=== PATIENT | female | born 1995 | race Caucasian/White ===

== ENCOUNTER 2022-11-30 16:01 | Outpatient (CLI) | payer OTHER, SELFPAY ==
--- NOTE | 2022-11-30 16:00 | CRLHL7_ITS ---
For Patients: As a result of the Cures Act, medical imaging exams and procedure reports are released immediately into your electronic medical record. You may view this report before your referring provider. If you have questions, please contact your health care provider. INDICATION: First trimester scan, establish dates. COMPARISON: None. TECHNIQUE: Real-time cardona-scale imaging of the pelvis was performed. FINDINGS: Sonographic imaging demonstrates a single living intrauterine gestation. The embryo demonstrates a regular cardiac rate measuring 166 beats per minute. The embryo`s crown-rump length measurement of 2.2 cm corresponds to a gestational age of 8 weeks 6 days with a sonographic due date of 07/06/2023. There is a normal-appearing yolk sac. There are no gross abnormalities noted within the embryo at this early state of development. The gestational sac has a normal appearance. There is no evidence of a perigestational hemorrhage. The amount of fluid within the sac appears appropriate for gestational age. The cervix is closed. The myometrium appears normal. The ovaries are of normal size. Corpus luteal cyst right ovary. Trace pelvic free fluid. IMPRESSION: Normal first trimester OB ultrasound exam. Gestational age calculated at 8 weeks 6 days with a sonographic due date of 07/06/2023. Dictated by Anand Em MD @ 12/03/2022 5:49:52 AM (Electronically Signed)
== END 2022-11-30 16:02 | disposition home or self-care (01) ==
LOC: US 16:02
PROVIDERS: PCP Family Medicine; Visit Provider Registered Nurse
DX: Z34.91 Encounter for supervision of normal pregnancy, unspecified, first trimester (principal); Z3A.08 8 weeks gestation of pregnancy
CPT/HCPCS: 76817; 86592; 86703; 86704; 86706; 86762; 86787; 86803; 86850; 86900; 86901; 87086; 87340; 87491; 87591

== ENCOUNTER 2023-04-18 14:30 | Outpatient (CLI) | payer BC, SELFPAY | END 2023-04-18 14:31 | disposition home or self-care (01) | LOC: NFLDREF 04-22 07:53 | PROVIDERS: PCP Family Medicine; Referring Provider Family Medicine; Visit Provider Obstetrics & Gynecology | DX: Z34.93 Encounter for supervision of normal pregnancy, unspecified, third trimester (principal) | CPT/HCPCS: 86592 ==

== ENCOUNTER 2023-06-13 09:30 | Outpatient (CLI) | payer BC, SELFPAY ==
--- OUTSIDE RECORDS SUMMARY | 2023-06-15 06:46 | XMS_ITS | Clinical Summary ---
Author Name Unknown Organization [facility] Address [place], [place] [address] Care Team Providers Care Computer Technology Instructor Name Role Phone Pcp, No Primary Care Provider Unavailabl e Allergies No known active allergies Medications Medication Sig Dispensed Refills Start Date End Date Status FLUoxetine (PROZAC) 20 mg capsule Take 20 mg by mouth once daily. 04/20/2016 Active buPROPion (WELLBUTRIN XL) 300 mg Extended-Release tablet Take 300 mg by mouth once daily. 04/20/2016 Active norgestimate-ethinyl estradiol, 0.25-35 mg-mcg, (SPRINTEC) 0.25-35 mg-mcg tablet 02/19/2017 Act ángel Active Problems No known active problems Social History Tobacco Use Types Packs/Day Years Used Date Smoking Tobacco: Never Smokeless Tobacco: Never Tobacco Cessation:Counseling Given: Yes Alcohol Use Standard Drinks/Week Comments Not Currently 0 (1 standard drink = 0.6 oz pur e alcohol) Social Connections Answer Date Recorded Frequency of Communication with Friends and Fami ly Not on file 02/07/2021 Financial Resource Strain Answer Date R ecorded Difficulty of Paying Living Expenses Not on file 02/07/2021 Difficulty of Paying Living Expenses Not on file 02/07/2021 Sex and Gender Information Value Date Recorded Sex Assigned at Not on file Gender Identity Not on file Sexual Orientation Not on file Obstetrics History Last Filed Vital Signs Vital Sign Reading Time Taken Comments Blood Pressure 115/73 05/20/2021 10:20 AM CDT Pulse 66 05/20/2021 10:20 AM CDT Temperature 36.5 ??C (97.7 ??F) 12/22/2018 7:43 AM CS T Respiratory Rate - - Oxygen Saturation 97% 05/20/2021 10: 20 AM CDT Inhaled Oxygen Concentration - - Weight 105.1 kg (231 lb 12.8 oz) 2021 10:20 AM CDT Height 174 cm (5' 8.5) 12/03/2019 4:31 PM CDT Body Mass Index 34.73 12/03/2019 4:31 PM CDT Plan of Treatment Health Maintenance Due Date Last Done Comments Tdap 2005 Depression screening for age 12+ 2006 HIV for age 15-65 2009 Hepatitis C screening for ag e 18-79 2012 Tetanus booster 2014 BMI (ht and wt on same day) for age 18+ 12/02/2020 12/03/2019 COVID-19 vaccine series ( season) 2022 12/25/2020, 04/16/2020, 03/19/2020 Influenza for age 9-49 10/09/2023 Pap test for age 21-65 11/30/2025 , 11/30/2022 Pneumococcal series for age 6-64 Aged Out No longer eligible b ased on patient's age to complete this topic Procedures Procedure Name Priority Date/Time Associated Diagnosis Comments HPV THIN PREP Routine 11/30/2022 12:00 PM CDT from Last 3 Months or Most Recently Relevant to Health Maintenance Results * HPV HIGH RISK (11/30/2022 12:00 PM CDT) TYPE 16 Negative Negative 12/03/2022 2:38 PM CDT [facility] TYPE 18 Negative Negative 12/03/2022 2:38 PM CDT [facility] OTHER HIGH RISK TYPES Negative Negative 12/03/2022 2:38 PM CDT [facility] Other (Cervical) 11/30/2022 12:00 PM CDT 12/02/2022 10:38 AM CDT [facility] - 12/03/2022 2:38 PM CDT HPV types 16, 18, 31, 33, 35, 39, 45, 51, 52, 56, 58, 59, 66 and 68 DNA were undetectable or below the pre-set threshold. Methodology: Naldo Regla 4800 HPV Test Carissa Zambrano NP MICROBIOLOGY [facility]AL LAB[facility]ATORY [address] [place] [address], from Last 3 Months or Most Recently Relevant to Health Maintenance Care Teams Computer Technology Instructor Relationship Specialty Start Date End Date Pcp, No . PCP - General 12/22/18
== END 2023-06-13 09:31 | disposition home or self-care (01) ==
LOC: NFLDREF 06-15 06:45
PROVIDERS: PCP Family Medicine; Referring Provider Family Medicine; Visit Provider Obstetrics & Gynecology
DX: Z34.83 Encounter for supervision of other normal pregnancy, third trimester (principal)
CPT/HCPCS: 87081; 87653

== ENCOUNTER 2023-06-24 19:45 | Inpatient (IN) | payer BC, SELFPAY ==
--- OUTSIDE RECORDS SUMMARY | 2023-06-24 18:27 | XMS_ITS | Clinical Summary ---
Author Name Unknown Organization [facility] Address [place], [place] [address] Care Team Providers Care Video Control Engineer Name Role Phone Pcp, No Primary Care [...] 16 Negative Negative 12/03/2022 2:38 PM CDT [facility] TYPE 18 Negative Negative 12/03/2022 2:38 PM CDT [facility] OTHER HIGH RISK TYPES Negative Negative 12/03/2022 2:38 PM CDT [facility] Other (Cervical) 11/30/2022 12:00 PM CDT 12/02/2022 10:38 AM CDT [facility]AL [facility] - 12/03/2022 2:38 PM CDT HPV types 16, 18, 31, 33, 35, 39, 45, 51, 52, 56, 58, 59, 66 and 68 DNA were undetectable or below the pre-set threshold. Methodology: Naldo Regla 4800 HPV Test Carissa Zambrano NP MICROBIOLOGY [facility]-CENTRAL LABORATORY [address] [place] [address], from Last 3 Months or Most Recently Relevant to Health Maintenance Care Teams Video Control Engineer Relationship Specialty Start Date End Date Pcp, No . PCP - General 12/22/18
[2023-06-24 18:43] VITALS: BP 138/81; PULSE 78; RESP 16; TEMP 37.2
[2023-06-24 18:59] LABS: Amnisure Rom* POSITIVE
[2023-06-24 19:03] VITALS: BP 137/80; PULSE 88
[2023-06-24 19:50] VITALS: BMI 32.1
[2023-06-24 20:13] LABS: Basophils Absolute Auto 0.01 K/uL (0.00-0.30); Basophils Percent Auto 0.1 % (0.0-3.0); Eosinophils Absolute Auto 0.06 K/uL (0.00-0.50); Eosinophils Percent Auto 0.6 % (0.0-7.0); Hematocrit 37.5 % (33.0-51.0); Hemoglobin* 12.6 gm/dL (12.0-16.0); Immature Granulocytes Abs Auto 0.02 K/uL (0.00-0.30); Immature Granulocytes Pct Auto 0.2 %; Lymphocytes Percent Auto 18.3 % (20-44); Mean Corpuscular HGB Conc 34 gm/dL (32-36); Mean Corpuscular Hemoglobin 28 pg (26-34); Mean Corpuscular Volume 83 fL (80-100); Monocytes Percent Auto 8.2 % (0.0-11.0); Neutrophils Percent Auto 72.6 % (42.0-72.0); Platelet Count* 265 K/uL (140-440); RDW Coefficient of Variation % 12.9 % (11.5-15.5); Red Blood Count 4.53 m/uL (4.00-5.20); White Blood Count* 9.49 K/uL (4.50-11.00)
[2023-06-24 20:14] LABS: Slide Review Reflex No
--- NOTE | 2023-06-24 20:29 | P.LDBA_ITS ---
Subjective History of Present Illness Narrative: Patient is being admitted to Labor and Delivery for premature rupture membranes at term. She is a 27 year old at 37 weeks, 5 days gestation. She had her first gush of fluid at 1130 today. This then recurred a few times during the day. AmniSure was positive upon admit. Her full history and physical was dictated by Dr. Plasencia on 06/22/2023. Please see this for details. Specific Issues/Plans G 2 P 0010 1. Depression and anxiety. Currently well-managed on Wellbutrin XL 300mg daily and Fluoxetine 80mg daily. 2. Nausea and vomiting of and motion sickness. Will send refill of zofran. Also recommended B6 and Unisom. 3. Family of congenital heart disease (maternal grandfather - coarctaion of aorta) * Level II ultrasound at [facility] on 02/09/2023 at 18w3d: EFW at the 79th percentile. AC at the 70th percentile. No anomalies commonly detected by ultrasound or soft markers of aneuploidy were identified in the detailed anatomy survey. Cervical length: 44.9 mm * Cell free DNA for genetic screening drawn during the consult: 02/09/23 result is negative * Further ultrasound as clinically indicated 4. History of reduction mammoplasty. May affect breast feeding. Rubella non immune. recommend vaccine. Varicella non immune. Recommend vaccine. Flu: 11/19/22 Covid: 11/19/22 Tdap: 05/02/23 32 wk mental health: done, 0/0 34 wk Hgb: 05/30/23 OB - Problem Based A/P Additional Plan (1) PROM (premature rupture of membranes): Status: Acute Plan: woman at 37 weeks, 5 days gestation with PROM at term. Not tiffanie regularly approximately for 9 hours after rupture of membranes. Unfavorable cervix. Reassuring status with category 1 tracing. GBS negative. Plan Oral Cytotec for cervical ripening. Pitocin thereafter as needed. Delivery/Labor/Induction Plan Plan: induction Induction method: per misoprostol protocol OB Result Labs GBS Status: negative OB Exam Physical Exam Vital signs: Temp Pulse Resp BP 98.9 F 88 16 137/80 06/24/23 18:43 06/24/23 19:03 06/24/23 18:43 06/24/23 19:03 Narrative: Physical exam: General: No acute distress Psych: Alert and oriented x3, full affect HEENT: Normocephalic, atraumatic Neck: No cervical adenopathy, no thyromegaly Heart: Regular rate and rhythm, no murmur rub or gallop Lungs: Clear to auscultation bilaterally Abdomen: Soft, nontender, gravid Lower extremities: No edema or erythema Cervical exam per RN: FT / long / high / posterior NST: Baseline 130 / accelerations present / no decelerations / moderate variability. Reactive, reassuring NST.
[2023-06-24] MEDS: miSOPROStoL 25 MCG/0.25 TABLET PO ×2 (21:06→23:12)
[2023-06-24 22:01] VITALS: BP 134/82; PULSE 77; TEMP 36.5
[2023-06-24] MEDS: hydrOXYzine pamoate 25 MG CAPSULE 100 MG PO (23:12)
[2023-06-24] MEDS: MORPHINE 10 MG/ML inj IM (23:12)
[2023-06-24 23:18] VITALS: BP 122/79; PULSE 62; RESP 16; TEMP 36
[2023-06-25] VITALS (94 sets, daily range): BP systolic 97–165; BP diastolic 53–99; PULSE 59–119; RESP 16–20; TEMP 36.4–37.1; O2SAT 84–100
[2023-06-25] MEDS: miSOPROStoL 25 MCG/0.25 TABLET PO (01:23)
[2023-06-25] MEDS: LIDOCAINE 2% (PF) 5 ML VIAL EPIDURAL (04:28)
[2023-06-25] MEDS: ROPIVACAINE 0.2% 100 ml 100 ML 12 MG EPIDURAL (04:28)
[2023-06-25] MEDS: LACTATED RINGERS 1000 ML 1,000 ML 100 ML IV (04:28)
--- NOTE | 2023-06-25 04:32 | PM.ANBPRC ---
[facility] Medical History Motion sickness ?T75.3XXA - Motion sickness, initial encounter (ICD-10) Insomnia ?G47.00 - Insomnia, unspecified (ICD-10) Depression ?F32.A - Depression, unspecified (ICD-10) Anxiety ?F41.9 - Anxiety disorder, unspecified (ICD-10) Surgical History H/O bilateral breast reduction surgery ?Z98.890 - Other specified postprocedural states (ICD-10) Status post myringotomy with tube placement of both ears (01/2001) ?Z96.22 - Myringotomy tube(s) status (ICD-10) Family History Paternal Grandfather Coarctation of aorta Social History Narrative: [employer], [employer] faculty member (Kindergarten), nonsmoker What is your current living situation?: I presently have a place to live Problems where you live: no known problems In the past 12 months, utilities in danger of being shut off: no In past 12 months, lack of transportation kept you from medical appts, meetings, work, or getting things needed for daily living: no In the past 12 mos, have been you worried that your food would run out before you had money to buy more?: never true In the past 12 mos, the food you bought just didn't last and you didn't have money to buy more?: never true Smoking Status: Never smoker How often does anyone, including family, friends and others, physically hurt you: never How often does anyone, including family, friends and others, insult or talk down to you: never How often does anyone, including family, friends and others, threaten you with harm: never How often does anyone, including family, friends and others, scream or curse at you: never Little interest or pleasure in doing things: not at all Feeling down, depressed, or hopeless: not at all Meds Home Medications and Allergies Home Medications Medication Instructions Recorded Confirmed Type docosahexaenoic acid 200 mg 200 mg PO DAILY 11/30/22 06/24/23 History capsule ( DHA) Allergies Allergy/AdvReac Type Severity Reaction Status Date / Time No Known Drug Allergies Allergy Verified 06/24/23 18:41 Results Labs Labs: Laboratory Results - last 24 hr 06/24/23 06/24/23 18:50 20:08 WBC 9.49 RBC 4.53 Hgb 12.6 Hct 37.5 MCV 83 MCH 28 MCHC 34 RDW Coeff of Akanksha 12.9 Plt Count 265 Neut % (Auto) 72.6 H Lymph % (Auto) 18.3 L [place] % (Auto) 8.2 Eos % (Auto) 0.6 Baso % (Auto) 0.1 Neut # (Auto) 6.90 Lymph # (Auto) 1.70 [place] # (Auto) 0.80 Eos # (Auto) 0.06 Baso # (Auto) 0.01 Abs Immat Gran (auto) 0.02 Imm/Tot Granulo (auto) 0.2 Membrane Rupture POSITIVE Blood Type A Positive Antibody Screen NEGATIVE Vital Signs Vital Signs: Last Vital Signs Temp 97.5 F L 06/25/23 03:30 Pulse 86 06/25/23 04:30 Resp 18 06/25/23 03:30 BP 131/85 06/25/23 04:30 Pulse Ox 100 06/25/23 04:30 Weight: 98.747 kg Height: 175.26 cm Anesthesia Procedures Epidural Insertion Patient Location: OB Start Time: 04:00 Stop Time: 04:40 Start Date: 06/25/23 Stop Date: 06/25/23 Reason for Block: primary anesthetic Patient Position: sitting Performed By: Kelvin Tate Preanesthetic Checklist: IV checked, risks and benefits discussed, surgical consent, monitors and equipment checked, pre-op evaluation, timeout performed and anesthesia consent Prep: chlorhexidine gluconate Monitoring: blood pressure monitoring, monitoring manager, continuous pulse oximetry and heart rate Approach: midline Vertebral Space: lumbar (1-5) Needle Type: Tuohy needle Injection Technique: continuous catheter (catheter) Needle gauge: 17 Needle Length (cm): 10 cm Needle Insertion Depth (cm): 5 Catheter Gauge: 19 Catheter Type: multi-orifice Catheter at skin depth (cm): 10 Test Dose Result: negative and lidocaine 1.5% with epinephrine 1 to 200,000
[2023-06-25] MEDS: LACTATED RINGERS 1000 ML 1,000 ML 125 ML IV (08:04)
[2023-06-25] MEDS: OXYTOCIN 30 unit/500 ML in NS 30 UNIT/500 ML BAG IVPB (09:56)
--- NOTE | 2023-06-25 11:36 | PM.ANPOST ---
Post Anesthesia Note Post Anesthesia Note Patient seen: Inpatient Respiratory Status: adequate Cardiovascular Status: adequate Mental Status: baseline Pain: adequate Temp: baseline Anesthetic awareness: N/A Complications: none Follow care: none
--- NOTE | 2023-06-25 12:57 | W.PM.OBVAGDE ---
OB Procedure Vag Delivery Mother Details Mother Details: The patient is a 27 year-old, 2, Para 0, admitted on 06/24/23 at 37 5/7 weeks gestation for labor induction after PROM. Patient had watery like discharge on 06/24/23 at around 1130. Upon admission was found fingertip/long. Cytotec was utilized per protocol and patient progressed normally. She got an epidural at around 0430 this morning. she was checked by nurses this morning at around 0630 and was found at 8cm. At around around 0900 a deep variable deceleration was noted and I evaluated patient and found her complete and +2 station. Recommendation was given to start pushing. : 2 Para: 1 Weeks Gestation: 37.6 Admission Date: 06/24/23 Additional Details Amniotic Membrane Status: SROM Amniotic Membrane Rupture Date: 06/24/23 Amniotic Membrane Rupture Time: 11:30 Amniotic Membrane Fluid Description: Clear Analgesia/Anesthesia Type: Epidural Waterbirth: No Pitcoin: Yes (During second stage, due to maternal exhaustion ) Intrapartal Events: Labor Induction and ROM >18 Hours Induction Method: per misoprostol protocol and per pitocin protocol Labor Onset: 00:00 Complete: 09:01 Pushin:12 Heart: heart tones during second stage were category 2. Patient started pushing at 0912, good pushing efforts. With pushing heart rate deceleration noted consistent with umbilical cord compression. At around 0915 patient had an episode of vomiting, and heart rate had a prolonged deceleration with juana to the 70s and lasted about 4 minutes. During this time, we moved patient to her right side, increased IVFs and this helped heart rate recover to baseline. Moderate variability and accelerations noted in between contractions and pushing efforts. Variable decelerations while pushing did continue, she continued to make slow progress with pushing. Patient was evidently exhausted after about 45 minutes of pushing, uterine contractions palpated mild and I recommended to start IV Oxytocin at this time to help patient while pushing. IV Oxytocin was started at around 0956. Again, tracing with moderate variability and heart rate accelerations noted with scalp stimulation. Slow, but progressive descent noted. After 1030 heart rate noted to become tachycardic at this time you could start to see a small crown without separation of labia. Patient becoming more exhausted and at around 1104 there was another prolonged deceleration, Oxytocin was discontinued, resuscitative methods completed and recommendation was given for placement of a vacuum to assist delivery. OA position had been noted during pushing. A kiwi vacuum device was applied over the sagittal suture and about 3 cm in front of the posterior fontanelle towards the face. Vacuum pressure was created with hand pump and established at 500 mmHg. The edge of the vacuum cup was carefully examined, no maternal tissue was entrapped under the cup. With the left hand applying counter pressure on the vacuum cup to prevent pop-off, right hand applied gentle horizontal traction along the pelvic axis in coordination with uterine contraction and maternal pushing. Progressive descent was noted. The handle of the vacuum device was gradually elevated when the perineum began to bulge. No pop ups. I did utilize it for 2 uterine contractions, pressure released in between contractions. Vacuum was on at 1109 and off at 11 13 were a large crown was noted. With the next contraction patient pushing effectively and large crown again noted but significant perineal resistance encountered and recommendation was given for episiotomy to accelerate delivery. A mediolateral episiotomy completed and head delivered immediately afterwards at 1120. Umbilical cord noted to be wrapped around the neck, initially did not reduce easily and decision was made to deliver through, this was immediately released after delivery of the body. Baby placed on mom's chest initially, we did cut the cord quickly for further evaluation of at warmer. Baby did receive PPV for a short time right after delivery. Please refer to Dr. Richmond's delivery note. Delivery Details Delivery Details: Delivered over [intact perineum] via [spontaneous] vaginal delivery. was placed on maternal abdomen.? Cord was clamped and cut after a 30-60 second delay. Nose and mouth were bulb suctioned.? weight pending. 1 Minute Interval Total Score: 2 5 Minute Interval Total Score: 8 Additional Details Shoulder Dystocia: No Placenta Delivery Time: 11:24 Placental Delivery Description: Spontaneous Delivery repair: Vicryl Procedure Done: Global Blood Loss: 300 Episiotomy Description: Left Mediolateral (No extensions) Blood Loss Measurement Type: QBL Bakri Used: No Sponge/Need Count Correct: Yes Cord Vessel Description: 3 Vessels, Nuchal Cord and Delivered through Event Summary Status: Mother and were stable after delivery. Patient with evidence of elevated blood pressures 4 hours apart, will order preeclampsia labs at this time and will continue close observation of vital signs. Disposition: floor
[2023-06-25] MEDS: IBUPROFEN 600 MG TABLET PO ×2 (13:13→20:53)
[2023-06-25 13:58] LABS: Basophils Percent Auto 0.1 % (0.0-3.0); Hematocrit 35.9 % (33.0-51.0); Immature Granulocytes Pct Auto 0.1 %; Lymphocytes Percent Auto 3.7 % (20-44); Mean Corpuscular HGB Conc 33 gm/dL (32-36); Mean Corpuscular Hemoglobin 28 pg (26-34); Mean Corpuscular Volume 83 fL (80-100); Monocytes Percent Auto 5.6 % (0.0-11.0); Neutrophils Percent Auto 90.5 % (42.0-72.0); Platelet Count* 243 K/uL (140-440); RDW Coefficient of Variation % 13.1 % (11.5-15.5); Red Blood Count 4.33 m/uL (4.00-5.20); White Blood Count* 17.96 K/uL (4.50-11.00)
[2023-06-25 14:03] LABS: Slide Review Reflex No
[2023-06-25 14:11] LABS: Alanine Aminotransferase* 31 U/L (4-35); Aspartate Amino Transferase* 35 U/L (12-35); Blood Urea Nitrogen* 10 mg/dL (5-24); Creatinine* 0.6 mg/dL (0.5-1.5); Est. Creatinine Clearance* 145.89; Estimated Glomerular Filt Rate 125 ml/min
[2023-06-25 14:12] LABS: Fibrinogen* 417 mg/dL (200-450); Partial Thromboplastin Time* 26 Seconds (23-33)
[2023-06-25] MEDS: ACETAMINOPHEN 500 MG TABLET 1000 MG PO (15:38)
[2023-06-26] VITALS (8 sets, daily range): BP systolic 107–138; BP diastolic 63–92; PULSE 68–92; RESP 12–18; TEMP 36.5–36.7; O2SAT 97–98
[2023-06-26] MEDS: IBUPROFEN 600 MG TABLET PO ×3 (02:25→20:17)
[2023-06-26 06:40] LABS: Hemoglobin* 10.2 gm/dL (12.0-16.0)
[2023-06-26] MEDS: ACETAMINOPHEN 500 MG TABLET 1000 MG PO ×2 (07:43→15:56)
[2023-06-26] MEDS: DOCUSATE SODIUM 100 MG CAPSULE PO (07:43)
--- NOTE | 2023-06-26 08:42 | P.OBPN_ITS ---
OB - PN:Subj Subjective Date Seen: 06/26/23 Interval history: Patricia is a 27 y.o. who was admitted to L & D for IOL after PROM. ?She had an uncomplicated Vacuum assisted vaginal delivery.?The patient feels well. ?The pain is well controlled with current medications. ?She has no new complaints. ?She is breast feeding and reports things are going well.? the patient has done well.? Vitals have been stable.? She has remained afebrile.? Has a good appetite, is tolerating a general diet. ?She is voiding without difficulty.? She is passing gas and has not had a bowel movement.? She is ambulating and denies any dizziness.? Has Small amount of rubra lochia. ?S Patient comments OB post-: pain well controlled, tolerating diet and flatus present infant status: feeding status: exclusively OB - PN: Obj Exam Physical Exam: Vital signs: Temp Pulse Resp BP Pulse Ox O2 Del Method 97.9 F 68 16 118/75 98 Room Air 06/26/23 07:38 06/26/23 07:38 06/26/23 07:38 06/26/23 07:38 06/26/23 07:38 06/26/23 07:38 Narrative: VITAL SIGNS: As noted above. GENERAL APPEARANCE: Alert, cooperative female in no acute distress. MOOD & AFFECT: Normal. ABDOMEN: Soft, non-distended and nontender. Well contracted uterus at umbilicus. : Normal lochia. EXTREMITIES: Nonedematous. Well perfused. Nontender. OB - PN: Obj Data Labs Labs: Laboratory Results - last 24 hr 06/25/23 06/26/23 13:48 06:18 WBC 17.96 H RBC 4.33 Hgb 12.0 10.2 L Hct 35.9 MCV 83 MCH 28 MCHC 33 RDW Coeff of Akanksha 13.1 Plt Count 243 Neut % (Auto) 90.5 H Lymph % (Auto) 3.7 L [place] % (Auto) 5.6 Eos % (Auto) 0.0 Baso % (Auto) 0.1 Neut # (Auto) 16.30 H Lymph # (Auto) 0.70 L [place] # (Auto) 1.00 H Eos # (Auto) 0.00 Baso # (Auto) 0.00 Abs Immat Gran (auto) 0.00 Imm/Tot Granulo (auto) 0.1 APTT 26 Fibrinogen 417 BUN 10 Creatinine 0.6 Estimated Creat Clear 145.89 Estimated GFR 125 AST 35 ALT 31 OB - PN: A/P Delivery Assessment and Plan (1) PROM (premature rupture of membranes): Status: Acute (2) Gestational hypertension: Status: Acute Assessment and Plan: Diagnosed . Labs normal. Will continue to monitor vital signs closely. Plan day: 1 Plan: routine care Comments: If stable, consider discharge home tomorrow.
[2023-06-26] MEDS: MEASLES,MUMPS,RUBELLA VACC/PF 1 DOSE INJ 1 EACH SUBCUT (15:57)
[2023-06-27 00:10] VITALS: BP 128/82; PULSE 71; RESP 18; TEMP 36.5; O2SAT 97
[2023-06-27 04:00] VITALS: BP 132/83; PULSE 69; RESP 18; O2SAT 97
[2023-06-27 05:14] LABS: Rapid Plasma Reagin (RPR) Non Reactive (Non Reactive)
[2023-06-27] MEDS: ACETAMINOPHEN 500 MG TABLET 1000 MG PO (06:09)
--- NOTE | 2023-06-27 07:42 | P.DS_ITS ---
DS: Providers Provider Date Seen: 06/27/23 Date of admission: 06/24/23 19:45 Primary care physician: Anand Gomez MD Admitting Clinician: Do Marte MD Attending Physician on discharge: Jazlyn Mclain CNM Date of Discharge: 06/27/23 DS: Diagnosis Discharge Diagnosis (1) Gestational hypertension: Status: Acute (2) care and examination immediately after delivery: Status: Acute Exam Narrative: Exam Narrative: VSS, afebrile GENERAL APPEARANCE: ?normal affect, alert, no distress MOOD: ?appropriate HEENT: normocephalic, neck supple, full ROM CHEST: ?Symmetrical chest wall movement. ?Normal respiratory effort. ?Clear to auscultation HEART: ?regular rate and rhythm ABDOMEN: ?soft, non-tender. Uterine fundus is firm, at Umbilicus, Midline and is appropriate for the stage of recovery. ?Bowel sounds present. PERINEUM: ?mild edema of the perineum, there is an episiotomy that is healing well. EXTREMITIES: ?normal and no edema Const: Vital Signs, click to edit/add: Vital Signs - 24 hr 06/26/23 11:23 06/26/23 15:45 06/26/23 16:30 Temperature 97.9 F 98.0 F Pulse Rate [Pulse Oximeter] 73 72 Respiratory Rate 17 17 Blood Pressure [Le ft Arm] 138/89 128/92 H 124/79 Pulse Oximetry 97 98 Oxygen Delivery Me thod Room Air Room Air 06/26/23 20:00 06/27/23 00:10 06/27/23 04:00 Temperature 97.8 F 97.7 F Pulse Rate [Pulse Oximeter] 92 71 69 Respiratory Rate 18 18 18 Blood Pressure [Le ft Arm] 112/65 128/82 132/83 Pulse Oximetry 98 97 97 Oxygen Delivery Me thod Room Air Room Air Room Air OB - DS: Summary Hospital Course Hospital Course: Patricia is a 27 y.o. who was admitted to [facility] for labor. ?She had a NVD with and episiotomy and vacuum extraction.?The patient feels well. ?The pain is well controlled with current medications. ?She has no new complaints. ?She is formula feeding and reports things are going well.? the patient has done well.? Vitals have been stable.?She was diagnosed with gestational hypertension this . She has remained afebrile.? Has a good appetite, is tolerating a general diet. ?She is voiding without difficulty.? She is passing gas and has not had a bowel movement.? She is ambulating and denies any dizziness.? Has Small amount of rubra lochia. ?She is undecided about what she is planning for prevention. Peripartum Data delivery method: Vaginal Episiotomy description: Right Mediolateral complications: none Coulters Gender: Male Infant Discharge Plan: Home Status at Discharge Functional status at discharge: independent ambulation Overall status at discharge: patient is progressing back to baseline Time Spent with Patient Time attestation: Total time spent providing and/or coordinating discharge services: Time spent: Less than 30 minutes Discharge Plan Discharge Disposition: Home, Self-Care Date of Admission: 06/24/23 19:45 Attending Provider on Discharge: Jazlyn Mclain Primary Care Provider: Anand Gomez Condition: Stable Anticipated Discharge Date/Time: 06/27/23 12:00 Discharge Medications: New acetaminophen 500 mg Tablet 1,000 mg PO Q6H PRNQty: 0 0RF docusate sodium 100 mg Capsule 100 mg PO DAILY Qty: 90 2RF ibuprofen 600 mg Tablet 600 mg PO Q6H PRNQty: 60 0RF Continued DHA 200 mg capsule 200 mg PO DAILY fluoxetine 40 mg capsule 80 mg PO QAM Qty: 60 0RF bupropion HCl [Wellbutrin XL] 300 mg tablet extended release 24 hr 300 mg PO QAM Qty: 90 0RF Discontinued ondansetron 4 mg tablet,disintegrating 4 mg PO Q6H PRN (Reason: nausea and vomiting) Qty: 30 2RF Discharge Orders: Discharge Order (Routine); Ordered 06/27/23 Ordered By: Jazlyn Mclain Patient Education: OB Over the Counter Medication Information, OB Vaginal/Bottle Feeding Additional Instructions: Discharge instructions were reviewed with the patient including signs and symptoms of infection and home going medications Nothing vaginally for 6 weeks: no tampons or intercourse Off Work or School for 6 weeks [facility] for a BP check?on 06/30/23 Call with BP greater than or equal to 160/110 2-week visit: discuss infant feeding concerns, review control options and screen for anxiety/depression. 6-week visit for an annual exam. consultation services are available to all mothers and babies for the first year after delivery.? To make an appointment, please call [phone]. Activity Level: Activity as Tolerated Discharge Diet: Regular Follow Up Appointments: [facility] [Provider Group] Forms: AVISth Info Instructions
[2023-06-27 08:17] VITALS: BP 124/76; PULSE 63; RESP 18; TEMP 36.4; O2SAT 98
[2023-06-27] MEDS: IBUPROFEN 600 MG TABLET PO (09:10)
[2023-06-27] MEDS: DOCUSATE SODIUM 100 MG CAPSULE PO (09:10)
== END 2023-06-27 11:13 | disposition home or self-care (01) | DRG 560 ==
LOC: OB OUT 06-25 01:05 → OB 06-25 01:05
PROVIDERS: Admitting Provider Obstetrics & Gynecology; PCP Family Medicine; Visit Provider Obstetrics & Gynecology
DX: O42.02 Full-term premature rupture of membranes, onset of labor within 24 hours of rupture (principal); O99.344 Other mental disorders complicating childbirth; Z3A.37 37 weeks gestation of pregnancy; Z37.0 Single live birth; F41.9 Anxiety disorder, unspecified; F32.A Depression, unspecified; Z82.79 Family history of other congenital malformations, deformations and chromosomal abnormalities; Z98.890 Other specified postprocedural states; O13.5 Gestational [pregnancy-induced] hypertension without significant proteinuria, complicating the puerperium
CPT/HCPCS: 01967; 36415; 59200; 82565; 84112; 84450; 84460; 84520; 85018; 85025; 85384; 85730; 86592; 86850; 86900; 86901; G0463; A9270; J2270; J2371; J2795; J7120

== ENCOUNTER 2023-12-01 10:03 | Outpatient (CLI) | payer BC, SELFPAY ==
--- OUTSIDE RECORDS SUMMARY | 2023-12-01 10:12 | XMS_ITS | Clinical Summary ---
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 Respiratory Rate - - Oxygen Saturation 97% [...] 12/02/2020 12/03/2019 COVID-19 vaccine series ( season) 2023 12/25/2020, 04/16/2020, 03/19/2020 Influenza for age 9-49 10/09/2023 Pap test for age 21-65 11/30/2025 , 11/30/2022 Pneumococcal series for age 6-64 Aged Out No longer eligible b ased on patient's age to complete this topic Procedures Procedure Name Priority Date/Time Associated Diagnosis Comments HPV HIGH RISK Routine 11/30/2022 12:00 PM CDT from Last 3 Months or Most Recently Relevant to Health Maintenance Results * HPV HIGH RISK (11/30/2022 12:00 PM CDT) TYPE 16 Negative Negative 12/03/2022 2:38 PM CDT [facility] TYPE 18 Negative Negative 12/03/2022 2:38 PM CDT [facility] OTHER HIGH RISK TYPES Negative Negative 12/03/2022 2:38 PM CDT [facility] Other (Cervical) 11/30/2022 12:00 PM CDT 12/02/2022 10:38 AM CDT Narrative [facility] - 12/03/2022 2:38 PM CDT HPV types 16, 18, 31, 33, 35, 39, 45, 51, 52, 56, 58, 59, 66 and 68 DNA were undetectable or below the pre-set threshold. Methodology: Naldo Regla 4800 HPV Test Carissa Zambrano NP MICROBIOLOGY [facility] [address] [place] [address], from Last 3 Months or Most Recently Relevant to Health Maintenance Care Teams Beader Tender Relationship Specialty Start Date End Date Pcp, No . PCP - General 12/22/18
== END 2023-12-01 10:04 | disposition home or self-care (01) ==
LOC: NFLDREF 10:04
PROVIDERS: PCP Family Medicine; Visit Provider Obstetrics & Gynecology
DX: O20.9 Hemorrhage in early pregnancy, unspecified (principal)
CPT/HCPCS: 84702

== ENCOUNTER 2023-12-03 11:37 | Outpatient (CLI) | payer BC, SELFPAY ==
--- OUTSIDE RECORDS SUMMARY | 2023-12-03 11:40 | XMS_ITS | Clinical Summary ---
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 Respiratory Rate - - Oxygen Saturation 97% [...] 16 Negative Negative 12/03/2022 2:38 PM CDT [facility] TYPE 18 Negative Negative 12/03/2022 2:38 PM CDT [facility] OTHER HIGH RISK TYPES Negative Negative 12/03/2022 2:38 PM CDT [facility] Other (Cervical) 11/30/2022 12:00 PM CDT 12/02/2022 10:38 AM CDT Narrative [facility] - 12/03/2022 2:38 PM CDT HPV types 16, 18, 31, 33, 35, 39, 45, 51, 52, 56, 58, 59, 66 and 68 DNA were undetectable or below the pre-set threshold. Methodology: Naldo Regla 4800 HPV Test Carissa Zambrano NP MICROBIOLOGY [facility] [address] [place] [address], from Last 3 Months or Most Recently Relevant to Health Maintenance Care Teams Tool Engineer Relationship Specialty Start Date End Date Pcp, No . PCP - General 12/22/18
[2023-12-03 12:29] LABS: HCG Quantitative* 4.75 mIU/mL
== END 2023-12-03 11:38 | disposition home or self-care (01) ==
PROVIDERS: PCP Family Medicine; Visit Provider Obstetrics & Gynecology
DX: O20.9 Hemorrhage in early pregnancy, unspecified (principal)
CPT/HCPCS: 36415; 84702

== ENCOUNTER 2024-05-17 09:41 | Outpatient (CLI) | payer BC, SELFPAY | END 2024-05-17 09:42 | disposition home or self-care (01) | PROVIDERS: PCP Family Medicine; Visit Provider Family Medicine | DX: D64.9 Anemia, unspecified (principal); R53.83 Other fatigue; Z13.6 Encounter for screening for cardiovascular disorders; F41.9 Anxiety disorder, unspecified; F32.A Depression, unspecified | CPT/HCPCS: 80053; 80061; 84443 ==

== ENCOUNTER 2024-07-31 15:49 | Outpatient (CLI) | payer BC, SELFPAY ==
--- NOTE | 2024-07-31 16:00 | CRLHL7_ITS ---
For Patients: As a result of the Cures Act, medical imaging exams and procedure reports are released immediately into your electronic medical record. You may view this report before your referring provider. If you have questions, please contact your health care provider. OB ULTRASOUND INDICATION: Dating and viability. TECHNIQUE: Real time grayscale imaging of the fetus was performed. Transvaginal. LMP: 05/26/2024. SHAYE by LMP: 03/02/2025. GA: 9 w, 3 d. Previous US: No. CRL: 2.8 cm. 9 w 4 d. SHAYE: 03/01/2025. FHR: 167 BPM. Gestational sac: 4.6 cm. Appears within normal limits. Yolk sac: 3.9 mm. Appears within normal limits. Right ovary: Within normal limits. 3.1 x 2.8 x 2.3 cm. CL. Left ovary: N/V. COMMENT: Right CL = 1.7 x 1.2 x 1.3 cm. IMPRESSION: Single living intrauterine measuring 9 weeks 4 days and sonographic due date 03/01/2025. Anand Em M.D. Diagnostic Radiologist [email or web address] DANIEL/camilo page/Dictated by: Anand Em MD @ 07/31/2024 4:36:00 PM (Electronically Signed)
== END 2024-07-31 15:50 | disposition home or self-care (01) ==
LOC: US 15:49
PROVIDERS: PCP Family Medicine; Visit Provider Registered Nurse
DX: Z34.91 Encounter for supervision of normal pregnancy, unspecified, first trimester (principal); Z3A.09 9 weeks gestation of pregnancy
CPT/HCPCS: 76817; 82565; 82570; 83021; 84156; 84450; 84460; 84520; 86592; 86703; 86704; 86762; 86787; 86803; 86850; 87086; 87340; 87491; 87591

== ENCOUNTER 2024-08-13 11:34 | Outpatient (CLI) | payer BC, SELFPAY | END 2024-08-13 11:35 | disposition home or self-care (01) | LOC: NFLDREF 08-15 01:20 | PROVIDERS: PCP Family Medicine; Referring Provider Family Medicine; Visit Provider Registered Nurse | DX: O09.299 Supervision of pregnancy with other poor reproductive or obstetric history, unspecified trimester (principal) | CPT/HCPCS: 82570; 84156 ==

== ENCOUNTER 2024-10-17 11:43 | Outpatient (CLI) | payer BC, SELFPAY | END 2024-10-17 11:44 | disposition home or self-care (01) | LOC: US 11:44 | PROVIDERS: PCP Family Medicine; Visit Provider Obstetrics & Gynecology | DX: Z82.79 Family history of other congenital malformations, deformations and chromosomal abnormalities (principal); O43.122 Velamentous insertion of umbilical cord, second trimester; Z87.59 Personal history of other complications of pregnancy, childbirth and the puerperium; Z3A.20 20 weeks gestation of pregnancy | CPT/HCPCS: 76811 ==

== ENCOUNTER 2024-10-26 13:32 | Outpatient (CLI) | payer BC, SELFPAY | END 2024-10-26 13:33 | disposition home or self-care (01) | LOC: RAD 13:33 | PROVIDERS: PCP Family Medicine; Visit Provider Obstetrics & Gynecology | DX: Z82.79 Family history of other congenital malformations, deformations and chromosomal abnormalities (principal); I34.0 Nonrheumatic mitral (valve) insufficiency; I07.1 Rheumatic tricuspid insufficiency | CPT/HCPCS: 93306 ==

== ENCOUNTER 2024-12-10 15:56 | Outpatient (CLI) | payer BC, SELFPAY ==
--- NOTE | 2024-12-10 16:00 | CRLHL7_ITS ---
For Patients: As a result of the Century Cures Act, medical imaging exams and procedure reports are released immediately into your electronic medical record. You may view this report before your referring provider. If you have questions, please contact your health care provider. ULTRASOUND OB PELVIS OB FOLLOW-UP GROWTH LMP: 05/26/2024. SHAYE by LMP: 03/02/2025. GA: 28w, 2d. Single. INDICATION: Velamentous cord insertion. COMPARISON: Ultrasound 10/17/2024. CERVIX: Not visualized. POSITIONING: Vertex. AMNIOTIC FLUID: 4.9 cm SDP. PLACENTA: Technique: Transabdominal. PLACENTA POSITION: Posterior. DOPPLER: heart rate: 142 bpm. BIOMETRY: BPD: 7.2 cm. 28w, 5d, 53 percent. HC: 26.4 cm. 28w, 5d, 32 percent. AC: 25.2 cm. 29w, 3d, 76 percent. FL: 5.3 cm. 28w, 2d, 36 percent. FL/AC ratio: 21.21 percent. HC/AC ratio: 1.05. EFW: 1307 g. Weight: 2 lbs, 14 oz. age by this US: 28w, 6d. SHAYE by this US: 02/26/2025. Percentile by SHAYE: 62 percent. IMPRESSION: 1. Sonographic gestational age 28 weeks 6 days with a sonographic due date 02/26/2025. Good correlation with dates. 2. Estimated weight 62nd percentile. Abdominal circumference 76th percentile. Anand Em M.D. Diagnostic Radiologist [email or web address] bM/Dictated by: Anand Em MD @ 12/10/2024 8:49:00 PM (Electronically Signed)
== END 2024-12-10 15:57 | disposition home or self-care (01) ==
LOC: US 15:56
PROVIDERS: PCP Family Medicine; Visit Provider Obstetrics & Gynecology
DX: O43.123 Velamentous insertion of umbilical cord, third trimester (principal); Z3A.28 28 weeks gestation of pregnancy
CPT/HCPCS: 76816; 82570; 84156; 86592

== ENCOUNTER 2025-01-08 15:52 | Outpatient (CLI) | payer BC, SELFPAY ==
--- NOTE | 2025-01-08 16:00 | CRLHL7_ITS ---
For Patients: As a result of the Century Cures Act, medical imaging exams and procedure reports are released immediately into your electronic medical record. You may view this report before your referring provider. If you have questions, please contact your health care provider. OB ULTRASOUND FOLLOW-UP CLINICAL HISTORY: Growth. Velamentous cord insertion. TECHNIQUE: Real time cardona scale imaging of the fetus was performed. Transabdominal imaging performed. COMPARISON: 12/10/2024, 10/17/2024, 07/31/2024. FINDINGS: LMP: 05/26/2024. SHAYE by LMP: 03/02/2025. GA: 32 weeks 3 days. Gestation: Single. Cervix: Not visualized. Positioning: Vertex. Amniotic Fluid: 5.4 cm SDP. Placenta: Technique: TA. Placenta Position: Posterior. Dopplers: Heart Rate: 173 bpm. BIOMETRY BPD: 8.3 cm, 33 weeks 4 days. 75.2% HC: 30.0 cm, 33 weeks 2 days. 34.8% AC: 29.4 cm, 33 weeks 3 days. 77.3% FL: 6.1 cm, 31 weeks 6 days. 22.0% FL/AC Ratio: 20.8% HC/AC Ratio: 1.0. EFW: 2086 grams, 4 lb 10 oz. Age by this US: 33 weeks 0 days. SHAYE by this US: 02/26/2025. Percentile by SHAYE: 56.8% IMPRESSION: 1. Sonographic gestational age 33 weeks 0 days and sonographic due date 02/26/2025. Good correlation with dates. Normal interval growth. 2. Estimated weight 57th percentile. Abdominal circumference 77th percentile. Anand Em M.D. Diagnostic Radiologist [email or web address] Transcribed: 9:08 am DW/Dictated by: Anand Em MD @ 01/09/2025 6:34:00 AM (Electronically Signed)
== END 2025-01-08 15:53 | disposition home or self-care (01) ==
LOC: US 15:53
PROVIDERS: PCP Family Medicine; Visit Provider Obstetrics & Gynecology
DX: O43.123 Velamentous insertion of umbilical cord, third trimester (principal); Z3A.33 33 weeks gestation of pregnancy
CPT/HCPCS: 76816

== ENCOUNTER 2025-01-08 16:15 | Outpatient (CLI) | payer BC, SELFPAY | END 2025-01-08 16:16 | disposition home or self-care (01) | LOC: NFLDREF 01-14 19:40 | PROVIDERS: PCP Family Medicine; Referring Provider Family Medicine; Visit Provider Internal Medicine Nephrology | DX: O43.123 Velamentous insertion of umbilical cord, third trimester (principal); Z3A.32 32 weeks gestation of pregnancy | CPT/HCPCS: 80069; 82570; 84156; 84450; 84460 ==

== ENCOUNTER 2025-01-22 15:50 | Outpatient (CLI) | payer BC, SELFPAY | END 2025-01-22 15:51 | disposition home or self-care (01) | LOC: NFLDREF 01-24 13:48 | PROVIDERS: PCP Family Medicine; Referring Provider Family Medicine; Visit Provider Registered Nurse | DX: Z34.93 Encounter for supervision of normal pregnancy, unspecified, third trimester (principal) | CPT/HCPCS: 82728 ==